=== PATIENT | male | born 1960 | race Caucasian/White ===

== ENCOUNTER 2019-07-02 11:04 | Outpatient (CLI) | payer OTHER | END 2019-07-02 23:59 | disposition home or self-care (01) | LOC: CFH 11:04 | PROVIDERS: ATTEND Nurse Practitioner | DX: S92.251A Displaced fracture of navicular [scaphoid] of right foot, initial encounter for closed fracture (principal); X58.XXXA Exposure to other specified factors, initial encounter; Y93.89 Activity, other specified; Y92.89 Other specified places as the place of occurrence of the external cause; Y99.8 Other external cause status ==

== ENCOUNTER → 2019-11-30 | Outpatient (CLI) | payer OTHER | END | disposition home or self-care (01) | LOC: CFH 08:43 | PROVIDERS: ATTEND Nurse Practitioner | DX: S92.254D Nondisplaced fracture of navicular [scaphoid] of right foot, subsequent encounter for fracture with routine healing (principal); M19.071 Primary osteoarthritis, right ankle and foot; X58.XXXD Exposure to other specified factors, subsequent encounter ==